=== PATIENT | female | born 2000 | race Caucasian/White ===

== ENCOUNTER 2021-01-13 20:21 | Emergency (ER) | payer MEDICAID ==
[~2021-01-13] VITALS: Ht 152.4 cm; Wt 52.0 kg
[2021-01-13 20:29] VITALS: BP 123/86
[2021-01-13] MEDS ORDERED: LORAZEPAM 0.5MG TABLET PO ONE (21:15)
== END 2021-01-13 23:31 | disposition home or self-care (01) ==
LOC: ER 20:21
DX: F41.9 Anxiety disorder, unspecified (principal)
CPT/HCPCS: 99281